=== PATIENT | male | born 1970 | race Caucasian/White ===

== ENCOUNTER 2023-03-29 12:42 | Emergency (ER) | payer BC, SELFPAY ==
[2023-03-29 13:05] VITALS: BP 133/75; PULSE 61; RESP 20; TEMP 36.6; O2SAT 97
--- NOTE | 2023-03-29 13:50 | ED.URI ---
HPI - URI/Sore Throat General Chief Complaint: Upper Respiratory Infection Stated Complaint: Congestion,Cough,Rt Ear Irritation Time Seen by Provider: 03/29/23 13:30 Source: patient, family and RN notes reviewed Mode of arrival: ambulatory Limitations: no limitations History of Present Illness HPI Narrative: Patient presents today with a 2 day history of cough, congestion and sinus pressure, right ear pain, sore throat. Denies fever or shortness of breath. He has been taking Tylenol and cold and flu medicine with some mild relief. Denies history of asthma or COPD. He is a nonsmoker. Some presents with similar symptoms. Related Data Home Medications Medication Instructions Recorded Confirmed omeprazole 40 mg capsule,delayed 40 mg PO DAILY 03/29/23 03/29/23 release Allergies Allergy/AdvReac Type Severity Reaction Status Date / Time No Known Allergies Allergy Verified 03/29/23 12:57 Review of Systems Review of Systems: CONSTITUTIONAL: Denies body aches, fever, chills, or sweats. EYES: Denies visual changes, redness, or discharge. ENT: Denies rhinorrhea. + congestion, sinus pressure, right ear pain, sore throat CARDIOVASCULAR: Denies chest pain, palpitations, or edema. RESPIRATORY: Denies dyspnea.+ cough GASTROINTESTINAL: Denies abdominal pain, nausea, vomiting, or diarrhea. GENITOURINARY: Denies dysuria or hematuria. SKIN: Denies rash, itching, or wounds. MUSCULOSKELETAL: Denies back pain, joint pain, or myalgia. NEUROLOGIC: Denies headache, numbness, tingling, or weakness. PSYCH: Denies depression or anxiety. PMFSH Comments At time of signature, I have reviewed and agree with nursing past medical, surgical, social and family history unless otherwise noted. Please see nursing chart for further information. There is no relevant family history pertinent to the presenting complaint Exam Narrative: GENERAL: Well-appearing, well-nourished, and in no acute distress. HEAD: Normocephalic, atraumatic. EYES: EOMI. No redness or drainage. Conjunctivae normal. ENT: Mucous membranes pink and moist. Nares congested. No rhinorrhea. Left TM normal. Right TM with serous effusion. Throat normal. Uvula midline. NECK: Normal AROM. Supple. No lymphadenopathy. CHEST: No respiratory distress. Clear to auscultation. HEART: Regular rate and rhythm. No murmur appreciated. EXTREMITIES: Normal range of motion. No edema. SKIN: Warm, dry, no rash. Capillary refill normal. Normal skin turgor. NEURO: No focal deficits. Alert and oriented x3. Gait steady. PSYCH: Normal affect. No signs of depression or anxiety. Course Course Level of Care: Express Care Visit Vital Signs Vital signs: Vital Signs Temperature 97.9 F 03/29/23 13:05 Pulse Rate 61 03/29/23 13:05 Respiratory Rate 20 03/29/23 13:05 Blood Pressure 133/75 03/29/23 13:05 Pulse Oximetry 97 03/29/23 13:05 Oxygen Delivery Room Air 03/29/23 13:05 Temperature 97.9 F 03/29/23 13:05 Pulse Rate 61 03/29/23 13:05 Respiratory Rate 20 03/29/23 13:05 Blood Pressure 133/75 03/29/23 13:05 Pulse Oximetry 97 03/29/23 13:05 Oxygen Delivery Room Air 03/29/23 13:05 Reviewed. Pt has been instructed to follow up with his PCP regarding his elevated blood pressure today. MDM - URI/Sore Throat MDM Narrative Medical decision making narrative: Symptoms consistent with upper respiratory infection with serous otitis media. Will treat with a course of prednisone. Anticipatory guidance given. Differential Diagnosis Differential diagnosis: Likely upper respiratory infection, otitis media, sinusitis, viral infection, bronchitis and pharyngitis Critical Care Time Critical Care Time Critical Care Time: No Discharge Plan Discharge Clinical Impression: Upper respiratory infection Qualifiers: URI type: unspecified URI Qualified Code(s): J06.9 - Acute upper respiratory infection, unspecified Acute serous otitis media of right
== END 2023-03-29 13:55 | disposition home or self-care (01) ==
PROVIDERS: Emergency Provider Nurse Practitioner; PCP Family Medicine
DX: J06.9 Acute upper respiratory infection, unspecified (principal); H65.01 Acute serous otitis media, right ear; K21.9 Gastro-esophageal reflux disease without esophagitis
CPT/HCPCS: 99213; G0463